=== PATIENT | female | born 1975 | race Caucasian/White ===

== ENCOUNTER → 2016-06-15 | Outpatient (CLI) | payer BC | LOC: MAMO 12-24 13:40 | DX: Z12.31 Encounter for screening mammogram for malignant neoplasm of breast (principal) | CPT/HCPCS: G0202 ==

== ENCOUNTER → 2016-07-01 | Outpatient (CLI) | payer BC | LOC: MAMO 13:14 | DX: R92.8 Other abnormal and inconclusive findings on diagnostic imaging of breast (principal) | CPT/HCPCS: 76641-LT; G0206 ==

== ENCOUNTER → 2020-10-28 | Outpatient (CLI) | payer BC | LOC: MAMO 10-06 11:30 | DX: Z12.31 Encounter for screening mammogram for malignant neoplasm of breast (principal) | CPT/HCPCS: 77063; 77067 ==

== ENCOUNTER → 2021-05-05 | Outpatient (CLI) | payer BC | LOC: US 09:39 | DX: R11.2 Nausea with vomiting, unspecified (principal); K76.0 Fatty (change of) liver, not elsewhere classified | CPT/HCPCS: 76705 ==

== ENCOUNTER → 2021-05-13 | Outpatient (CLI) | payer BC | LOC: NM 13:42 | DX: R30.0 Dysuria (principal); R11.2 Nausea with vomiting, unspecified | CPT/HCPCS: 78227; A9537 ==

== ENCOUNTER → 2021-05-22 | Outpatient (CLI) | payer BC | LOC: MRI 14:55 | DX: R11.2 Nausea with vomiting, unspecified (principal); R10.9 Unspecified abdominal pain; Z90.49 Acquired absence of other specified parts of digestive tract | CPT/HCPCS: 36415; 74183; 82565; A9577 ==

== ENCOUNTER → 2021-05-28 | Outpatient (CLI) | payer BC | LOC: KOH-I 14:55 | DX: Z01.818 Encounter for other preprocedural examination (principal) | CPT/HCPCS: 71046 ==

== ENCOUNTER → 2021-10-29 | Outpatient (CLI) | payer BC | LOC: MAMO 10:59 | DX: Z12.31 Encounter for screening mammogram for malignant neoplasm of breast (principal) | CPT/HCPCS: 77063; 77067 ==